=== PATIENT | female | born 1955 | race Caucasian/White ===

== ENCOUNTER 2021-07-03 05:28 | Emergency (ER) | payer MEDICARE ==
[~2021-07-03] VITALS: Ht 160 cm; Wt 68.0 kg
[2021-07-03] MEDS ORDERED: PROG100 PO (05:47)
[2021-07-03] MEDS ORDERED: EUTHYROX125 MCG PO (05:48)
[2021-07-03] MEDS ORDERED: Celexa20 MG PO (05:49)
[2021-07-03] MEDS ORDERED: CLIN150 PO (06:28)
== END 2021-07-03 06:52 | disposition home or self-care (01) ==
LOC: ER 05:28
DX: S61.311A Laceration without foreign body of left index finger with damage to nail, initial encounter (principal); E03.9 Hypothyroidism, unspecified; Z88.0 Allergy status to penicillin; Z79.899 Other long term (current) drug therapy; X58.XXXA Exposure to other specified factors, initial encounter
CPT/HCPCS: 90471; 90714; 99282-25

== ENCOUNTER 2025-02-06 14:56 | Emergency (ER) | payer OTHER ==
[~2025-02-06] VITALS: Ht 160 cm; Wt 59.0 kg
[~2025-02-06 14:56] MED LIST: CLIN150 PO; Celexa20 MG PO; EUTHYROX125 MCG PO; PROG100 PO
[2025-02-06 15:53] LABS: BASOPHILS ABSOLUTE AUTO 0.06 K/mm3 (0.00-0.23); BASOPHILS PERCENT AUTO 1 % (0-2); EOSINOPHILS ABSOLUTE AUTO 0.11 K/mm3 (0.00-0.68); EOSINOPHILS PERCENT AUTO 1 % (0-6); Hematocrit 41.1 % (33.0-51.0); Hemoglobin 13.9 g/dL (11.5-16.0); IMMATURE GRAN ABSOLUTE AUTO 0.03 K/mm3 (0.00-0.10); IMMATURE GRAN PERCENT AUTO 0 % (0-1); LYMPHOCYTES ABSOLUTE AUTO 1.52 K/mm3 (0.84-5.20); LYMPHOCYTES PERCENT AUTO 17 % (21-46); MONOCYTES ABSOLUTE AUTO 0.72 K/mm3 (0.16-1.47); MONOCYTES PERCENT AUTO 8 % (4-13); Mean Corpuscular HGB Conc 33.8 g/dL (31.5-36.5); Mean Corpuscular Volume 92 fL (80-100); NEUTROPHILS ABSOLUTE AUTO 6.72 K/mm3 (1.96-9.15); NEUTROPHILS PERCENT AUTO 73 % (41-73); NRBC ABSOLUTE 0.00 K/mm3 (0.00-0.02); NRBC Auto 0.0 /100 WBC (0.0-0.2); Platelet Count 314 K/mm3 (150-400); RDW Coefficient Variation 12.9 % (11.7-14.2); RDW Standard Deviation 43.3 fL (35.1-46.3)
[2025-02-06] MEDS ORDERED: ZYRTEC10 M2 PO (15:59)
[2025-02-06 16:07] LABS: Alanine Aminotransfer (ALT/SGP 21.0 U/L (12-78); Albumin, Blood 3.8 g/dL (3.4-5.0); Albumin/Globulin Ratio 1.2 (0.8-1.8); Anion Gap 9.0 mmol/L (3-11); Aspartate Aminotrans (AST/SGOT 19.0 U/L (12-37); Bilirubin, Total 0.4 mg/dL (0.1-1.0); Blood Urea Nitrogen 10.0 mg/dL (8-24); CO2, Blood 25.0 mmol/L (21-32); Calcium, Blood 9.4 mg/dL (8.5-10.1); Chloride, Blood 107.0 mmol/L (98-108); Creatinine, Blood 0.73 mg/dL (0.40-1.00); Globulin, Blood 3.3 g/dL (2.2-4.0); Glucose, Blood 99.0 mg/dL (70-99); Potassium, Blood 3.9 mmol/L (3.5-5.5); Sodium, Blood 137.0 mmol/L (136-145); Total Protein, Blood 7.1 g/dL (6.4-8.2)
[2025-02-06 16:15] LABS: Source, Urine Clean Catch
[2025-02-06 16:24] LABS: Bilirubin, Urine Neg (Neg); Glucose Qualitative, Urine Neg (Neg); Ketones, Urine Neg (Neg); Leukocyte Esterase, Urine 1+ (Neg); Protein, Urine Neg (Neg); Specific Gravity, Urine 1.005 (1.003-1.022); Urobilinogen, Urine NORM (Normal)
[2025-02-06 16:35] LABS: Color, Urine Pale Yellow (P-Yellow)
[2025-02-06 16:36] LABS: Red Blood Cells, Urine 0-2 /hpf (0-2)
[2025-02-06 17:28] VITALS: BP 139/85
[2025-02-06 17:39] LABS: Thyroid Stimulating Hormone <0.005 uIU/mL (0.360-4.800)
[2025-02-06 17:50] LABS: U Amphetamine Screen Not Detected; U Barbituate Screen Not Detected; U Benzodiazapine Screen Not Detected; U Buprenorphine Screen Not Detected; U Cannabinoids Screen Not Detected; U Cocaine Screen Not Detected; U Methadone Screen Not Detected; U Methamphetamine Screen Not Detected; U Opiates Screen Not Detected; U Oxycodone Screen Not Detected; U Phencyclidine Screen Not Detected
[2025-02-06 18:02] LABS: Ethanol (Alcohol), Blood, Med <3 mg/dL
[2025-02-06] MEDS ORDERED: CEPH500 PO (19:03)
[2025-02-06] MEDS ORDERED: ONDA4ODT MM (19:03)
== END 2025-02-06 19:13 | disposition home or self-care (01) ==
LOC: ER 14:56
PROVIDERS: Emergency Medicine; Physician Assistant
DX: N39.0 Urinary tract infection, site not specified (principal); I72.6 Aneurysm of vertebral artery; I10 Essential (primary) hypertension; E03.9 Hypothyroidism, unspecified; Z87.891 Personal history of nicotine dependence; Z91.81 History of falling; Z88.8 Allergy status to other drugs, medicaments and biological substances; Z88.0 Allergy status to penicillin; Z79.890 Hormone replacement therapy; Z79.899 Other long term (current) drug therapy
CPT/HCPCS: 70450; 70496; 70498; 80053; 80320; 81001; 83605; 84443; 85025; 87086; 93005; 93010; 99285-25; A9270; Q9967